=== PATIENT | female | born 1940 | race Caucasian/White ===

== ENCOUNTER 2017-08-29 05:23 | Observation (INO) | payer OTHER, BC ==
[2017-08-29] VITALS (7 sets, daily range): BP systolic 88–111; BP diastolic 45–71
[~2017-08-29] VITALS: Ht 162.6 cm; Wt 59.0 kg
--- NOTE | ~2017-08-29 | S ---
[facility] [place] [address] SURGICAL PATH RPT PROCEDURE Name: BREANNA RUELAS Room #: 407-P [facility] Kimberly Nguyen#: [id number] Admission: 08/29/17 Date of : 40 Discharge: 08/30/17 Report #: [id number] Path Case #: [id number] PATHOLOGY REPORT COLLECTION DATE: 08/29/2017 RECEIVED DATE: 08/29/2017 SUBMITTING PHYS: Dr. Hussain Wallace OTHER PHYS: Dr. Aileen Moran SPECIMEN(S) RECEIVED: A.Right inferior parathyroid adenoma * * * * * * * * * * * * FINAL DIAGNOSIS: "Right inferior parathyroid adenoma", parathyroidectomy: - Focally hypercellular parathyroid gland weighing 0.3 grams. (See comment) COMMENT: The histologic findings are compatible with a parathyroid adenoma. Adjacent more normal appearing parathyroid tissue is also present. Correlation with clinical history, additional laboratory data, radiographic findings and the surgical findings are required to confirm the presence of remaining normal parathyroid glands. (CLW:db; 08/30/2017) PATHOLOGIST: Celia Quijano M.D. REPORT ELECTRONICALLY SIGNED BY: Celia Quijano M.D. DATE/TIME: 08/30/2017 14:14 * * * * * * * * * * * * GROSS PATHOLOGY: The specimen is received fresh from the OR labeled "Breanna Ruelas and right inferior parathyroid adenoma." It consists of a small, red-brown, smooth, encapsulated glandular tissue fragment weighing 0.3 grams and measuring 1.1 x 0.7 x 0.6 cm. The capsule is intact and the external surface is inked blue. The specimen is bisected and a touch imprint is performed. The specimen is entirely submitted for one frozen section. The frozen section is then submitted as FSA1. (CLW:db; 08/30/2017) FROZEN SECTION DIAGNOSIS: (Monica Quijano M.D.): FSA1. "Right inferior parathyroid adenoma": - Hypercellular parathyroid gland weighing 0.3 grams. The case was discussed with Dr. Hussain Wallace in the frozen section area and a written report is placed in the patient's chart. [address] [address] SURGICAL PATH RPT PROCEDURE Name: JESSENIABREANNA Room #: 407-P [facility].#: [id number] Admission: 08/29/17 Date of : 40 Discharge: 08/30/17 Report #: [id number] Path Case #: [id number] Testing performed by [facility] at [facility] [address] [place] [address] CLINICAL HISTORY: None Provided INITIAL CPT CODE(S): A; 55173, 51431 Professional services performed by [facility] at [facility] [address] [place] [address] Technical services performed by [facility] at [address] [place] [address], [address], [place] [address]. [facility] [address] [address] PHONE: [phone] DIRECTOR: Luis F Barber M.D. * * * END OF REPORT * * *
--- NOTE | ~2017-08-29 | EKG ---
[place] [address] [facility] [place] [address] ELECTROCARDIOGRAM REPORT Name: RUEALSSHEELA Room #: 407-[facility] [address]#: [id number] Admission: 08/29/17 Attend Phys: Hussain Wallace MD Discharge: Date of : 40 Report #: [id number] THIS REPORT FOR: //name// [facility] Test Date: 2017-08-29 Test Time: 06:42:37 Pat Name: SHEELA RUELAS Department: Room: 407 Gender: F Manager [employer]: SHERRY : 1940 Requested By: Hussain Wallace Order Number: [id number] MD: Brian Olsen Measurements Intervals [place] Rate: 58 P: 75 NV: 189 QRS: -6 QRSD: 125 T: -4 QT: 435 QTc: 428 Interpretive Statements Sinus bradycardia Otherwise no significant abnormality Borderline T abnormalities, inferior leads No previous ECG available for comparison Electronically Signed On 08-29-2017 17:43:54 CDT by Brian Olsen [email or web address] <ELECTRONICALLY SIGNED> By: Brian Olsen MD, [facility] 08/29/17 1743 642 1 Brian Olsen MD, FACC /EPI
--- NOTE | ~2017-08-29 | O ---
[facility] [place] [address] [place] [address] OPERATIVE REPORT Name: SHEELA RUELAS Room #: 407-P [facility] M.R.#: [id number] Admission: 08/29/17 Attend Phys: Hussain Wallace MD Discharge: Date of : 40 Report #: [id number] THIS REPORT FOR: //name// CC: Joel Moran MD DATE OF SERVICE: 08/29/2017 PREOPERATIVE DIAGNOSIS: Primary hyperparathyroidism with suspected adenoma, right inferior neck. POSTOPERATIVE DIAGNOSIS: Primary hyperparathyroidism with right inferior parathyroid adenoma. OPERATION: Minimally invasive gamma guided parathyroidectomy with intraoperative nerve monitoring and intraoperative PTH monitoring. SURGEON: Hussain Wallace MD. LINUX NETWORK ADMINISTRATOR: Medical student Lauri. SECOND SUPERVISOR DRILLING AND SHOOTING: Medical student Kanu. ANESTHESIA: General. DESCRIPTION OF PROCEDURE: Under satisfactory general endotracheal anesthesia and with the patient in the supine position with the neck gently extended, the upper chest and neck were widely prepped with ChloraPrep solution. Sterile drapes were applied. Using the gamma probe, we identified the hot spot in the right inferior neck as expected from the preoperative studies. A short incision was made along the skin crease directly over that location for the minimally invasive approach. Dissection was carried down through the skin and platysma. The skin flaps were developed using electrocautery. The midline fascia was divided and the right strap muscles were retracted laterally. The right lobe of the thyroid was mobilized. The right recurrent laryngeal nerve was identified and protected from harm at all times. We utilized the NIMS system to identify and protect the right recurrent laryngeal nerve at all times. A normal right superior parathyroid gland was identified. An abnormal right inferior parathyroid gland was identified and this was consistent with an adenoma as expected. The right inferior parathyroid adenoma was carefully dissected away from surrounding tissues. The blood supply to the adenoma was controlled using Harmonic scalpel and the tumor was removed and submitted for frozen section. The pathologist reported a 300 mg classic appearing parathyroid adenoma. The [address] [address] OPERATIVE REPORT Name: RUELASSHEELA Room #: 407-P [facility] M..#: [id number] Admission: 08/29/17 Attend Phys: Hussain Wallace MD Discharge: Date of : 40 Report #: [id number] preoperative PTH level was 120. Ten minutes after the resection of the adenoma, the PTH had dropped to 34, which was an excellent response. Hemostasis was excellent. The sponge, instrument and needle counts were reported as correct. The incision was closed in layers using running 3-0 Vicryl for the midline fascia, interrupted 3-0 Vicryl for the platysma, and running 4-0 PDS for the subcuticular layer. Sterile dressings were applied and the patient was taken to recovery in satisfactory condition. Estimated blood loss was less than 10 mL. <ELECTRONICALLY SIGNED> By: Hussain Wallace MD 08/30/17 0724 1140 1203 Hussain Wallace MD /ayan
[~2017-08-29 05:23] MED LIST: LIPITOR10 MG PO; VITAMIN D50000 UNIT PO
[2017-08-29 07:25] LABS: HEMATOCRIT 40.6 % (37.0-47.0); HEMOGLOBIN 13.8 gm/dL (12.0-15.0); RBC 4.46 mil/uL (4.20-5.00); RDW 13.3 % (10.5-14.5); WBC 4.7 thou/uL (4.0-11.0)
[2017-08-29 07:33] LABS: CALCIUM 10.3 mg/dL (8.5-10.1); CREATININE 0.8 mg/dL (0.6-1.0); POTASSIUM 3.9 mmol/L (3.5-5.1)
[2017-08-29 07:38] LABS: ALBUMIN 3.4 g/dL (3.4-5.0); PROTIME 9.7 Seconds (9.3-11.4); TOTAL BILIRUBIN 0.7 mg/dL (<0.1-1.0); TOTAL PROTEIN 7.3 g/dL (6.4-8.2)
[2017-08-30 00:32] VITALS: BP 91/48
[2017-08-30 05:46] VITALS: BP 93/75
[2017-08-30 09:54] VITALS: BP 108/63
[2017-08-30 10:11] VITALS: BP 108/63
== END 2017-08-30 10:30 | disposition home or self-care (01) ==
LOC: TBA 05:23 → OR 05:23 → 4N 15:02 → ENTRNSPT 08-30 10:21 → EDTRNSPTSTS 08-30 10:24 → 4N 08-30 10:30
PROVIDERS: Specialist
DX: D35.1 Benign neoplasm of parathyroid gland (principal); E21.0 Primary hyperparathyroidism
CPT/HCPCS: 50010; 50101; 62110; 62900; 70005